=== PATIENT | male | born 1990 | race Caucasian/White ===

== ENCOUNTER 2023-07-22 11:35 | Observation (INO) | payer OTHER, SELFPAY ==
[2023-07-22 11:39] VITALS: BP 165/99; PULSE 85; RESP 16; TEMP 36.9; O2SAT 97
--- NOTE | 2023-07-22 11:45 | DI.CT_ITS ---
Exam(s) CT ABDOMEN PELVIS WO/W EXAM: CT ABDOMEN PELVIS WO/W CLINICAL HISTORY: question renal stone vs SBO- wo study then with. TECHNIQUE: Imaging Protocol: Axial computed tomography images with coronal and sagittal reformatted images were created and reviewed CONTRAST MATERIAL: Intravenous: Omnipaque-350 100cc Oral: None COMPARISON: No exams were available for comparison FINDINGS: VISUALIZED LUNG BASES: No nodules nor pleural effusions evident. ABDOMEN: There is no ascites. LIVER: Liver is quite hypodense implying steatosis and there is mild hepatomegaly. There no discrete focal hepatic lesions evident. No dilated intrahepatic ducts. GALLBLADDER/BILIARY: No obvious gallbladder pathology. CBD is not dilated. PANCREAS: No evidence of pancreatic mass nor dilatation of the pancreatic duct. SPLEEN: Spleen is not enlarged. No obvious intrasplenic lesions. Splenic and portal veins are paten t. ADRENALS: There are no significant adrenal masses. KIDNEYS:Mild left-sided hydronephrosis and hydroureter. There is an obstructing 3 millimeter calculu s in the distal most left ureter at the left ureterovesical junction. No additional calculi evident. No solid renal masses.. ABDOMINAL AORTA: Abdominal aorta is not enlarged. LYMPH NODES:There is no retroperitoneal nor paraaortic adenopathy. ABDOMINAL WALL: No evidence of significant anterior abdominal wall nor inguinal hernia. GI: There is no evidence of bowel obstruction, free air, nor abscess. PELVIS: GI: No evidence of appendicitis.No evidence of sigmoid diverticulitis. LYMPH NODES: There is no intrapelvic nor inguinal adenopathy. REPRODUCTIVE: Prostate size upper normal. Seminal vesicles unremarkable. There is a 7 x 5 mm calcif ication in the upper prostate, slightly left of center. Urinary bladder is moderately distended. URINARY BLADDER: Moderately distended. There is a 3 millimeter calculus at the left ureterovesical j unction. OSSEOUS: No fractures and no significant osseous lesions. IMPRESSION: 1. There is a solitary 3 millimeter calculus in the distal left ureter at the left ureterovesical pedro ction. There is mild dilatation left collecting system above this level. 2. No other calculi seen in the kidneys in ureters. There is a 7 x 5 mm calcification in the upper p rostate slightly left of center. Is difficult to determine if this is in or adjacent to the upper pr ostatic urethra. Urinary bladder is moderately distended. 3. Hepatic steatosis noted. RADIATION DOSE DELIVERED: 2,317.94mGy.cm Total DLP DATA REPOSITORY: All CT scans at this facility are submitted to the National Radiology Data Registry (NRDR) Dose Index Registry (DIR) with the [employer] (A[employer]). RADIATION OPTIMIZATION: All CT scans at this facility use at least one of these dose optimization te chniques: automated exposure control; mA and/or kV adjustment per patient size (includes targeted exa ms where dose is matched to clinical indication); or iterative reconstruction.
--- NOTE | 2023-07-22 11:46 | W.ED.GENAD ---
Discharge Plan Disposition Patient Disposition: Admit to [facility] Condition: Stable Discharge Details Clinical Impression: Obstructive uropathy Primary Care Provider: Unknown,Unknown ED Provider: Chris Allen Home Meds and New Rx's Prescriptions: No Action olanzapine 5 mg tablet 5 mg PO DAILY mirtazapine 45 mg tablet 45 mg PO DAILY buprenorphine HCl 8 mg tablet, sublingual 16 mg sublingual DAILY melatonin 3 mg capsule 3 mg PO HS docusate sodium 100 mg capsule 100 mg PO DAILY senna 8.6 mg capsule 8.6 mg PO QD-BID PRN Fiber-Lax 625 mg tablet 1,250 mg PO DAILY HPI General Date/Time Provider Initiated Documentation: 07/22/23 11:46. HPI Narrative: 32 year-old male presents to ED today by [facility] [employer]- with a chief complaint of L flank pain, problems with urination, sent by [facility] with concern for renal stone with onset for the past two days- patient has also associated constipation that relived with milk of magnesia, but still feels he may have some stool in there still. Quality described as discomfort, feels like he has to urinate but cant, no radiation to fever, does endorse some nausea, denies chest pain, shortness of breath. Severity is described as severe. Palliating factors include attempted to drink lots of water but having significant difficulty urinating. Provoking factors include nothing specific. Patient not anticoagulated. Related Data Home Medications Medication Instructions Recorded Confirmed buprenorphine HCl 8 mg sublingual 16 mg sublingual DAILY 07/22/23 07/22/23 tablet calcium polycarbophil 625 mg 1,250 mg PO DAILY 07/22/23 07/22/23 tablet (Fiber-Lax) docusate sodium 100 mg capsule 100 mg PO DAILY 07/22/23 07/22/23 melatonin 3 mg capsule 3 mg PO HS 07/22/23 07/22/23 mirtazapine 45 mg tablet 45 mg PO DAILY 07/22/23 07/22/23 olanzapine 5 mg tablet 5 mg PO DAILY 07/22/23 07/22/23 sennosides 8.6 mg capsule (senna) 8.6 mg PO QD-BID PRN 07/22/23 07/22/23 Allergies Allergy/AdvReac Type Severity Reaction Status Date / Time No Known Allergies Allergy Verified 07/22/23 11:45 General Stated Complaint: Urinary MARVIN: 3 Review of Systems All systems reviewed & are unremarkable except as noted in HPI and below Exam Narrative Exam Narrative: GENERAL APPEARANCE: Well-nourished, non-toxic, awake and alert, atraumatic, no acute distress. SKIN: Warm, pink, dry, intact, without rashes/lesions/ulcerations. HEAD: Normocephalic, atraumatic, normal hair distribution for gender/age. EYES: Pupils PERRLA, EOMs intact without nystagmus, normal conjunctiva, no exudates on lids/lashes. ENT: Nares patent, no circumoral cyanosis, no facial swelling NECK: Supple, trachea midline, painless cervical ROM. LUNGS/CHEST: Lungs CTA bilaterally- no rhonchi/rales/wheezes diffusely, non-labored respirations, normal A/P diameter, symmetrical expansion, no chest wall deformity HEART (CV/PV): Regular rate and rhythm without murmur, no peripheral edema, no JVD. ABDOMEN: Soft, non-distended, no guarding, + L CVA tenderness to percussion, suprapubic distention MSK: Normal ROM, no swelling/deformity to bilateral UEs or LEs, moving all extremities without weakness, no cyanosis, spine midline without tenderness, normal curvature. NEURO: Mental Status AAOx4 - alert to person, place, time, events No facial droop, no forehead involvement. Motor: No focal weakness - strength 5/5 in bilateral UEs and LEs, proximal and distal, symmetric. Sensory: sensation intact to light touch globally. Gait normal: patient ambulated without ataxia into ED room. PSYCH: euthymic, cooperative, pleasant, appropriate speech Course Vital Signs Vital signs: Vital Signs Temperature 36.9 C 07/22/23 11:39 Pulse 85 07/22/23 11:39 Respiratory Rate 16 07/22/23 11:39 Blood Pressure 165/99 H 07/22/23 11:39 Pulse Oximetry 97 07/22/23 11:39 Temperature 36.9 C 07/22/23 11:39 Pulse 85 07/22/23 11:39 Respiratory Rate 16 07/22/23 11:39 Respiratory Effort Normal 07/22/23 11:43 Blood Pressure 165/99 H 07/22/23 11:39 Pulse Oximetry 97 07/22/23 11:39 Pain Level 9 07/22/23 11:39 Medical Decision Making This dictation utilizes [id number] dictation software and may contain unedited grammatical errors. 32 y/o M presents to ED today with a chief complaint of L flank pain, difficulty urinating, constipation. Denies fever, chest pain, shortness of breath. Patient denies history of renal stones, sent for concern of this from [facility]. Patients' medical history: Diabetes, history of cholecystectomy, history of appendectomy. Family and social history: Incarcerated. Pertinent exam findings / vital signs include L CVA tenderness, suprapubic distention. Differential / pathologies of concern include ureteral stone, obstructive uropathy, infected kidney stone, fecal impaction. Diagnostic studies of: -CBC, BMP, Lipase, Lactate, UA, CT ABD/Pelvis w&wo Contrast. -CBC shows no leukocytosis, no anemia -Lactate elevated 2.3 -BMP no VAHID -UA has hematuria -CT shows distended urinary bladder with possible prostatic urethral stone as cause of for this, and a 3mm obstructing left ureteral stone Interventions of: -IV fluids, ketorolac, ceftriaxone, p.o. tamsulosin, consultation with urology and admission to the hospital for likely cystoscopy and possible procedure tomorrow. ED Course/Assessment/Plan: 32-year-old male presents from long term in custody, having left flank pain and difficulty urinating, he is able to force out some urine but is having to strain very hard to do so. There is a concerning distention of his urinary bladder, this is possibly secondary to a 7 x 5 calcification in the prostate possibly in the prostatic urethra. There is also a 3 mm obstructing left ureteral stone, the patient was able to force a small amount of urine here in the ED. I spoke with Cynthia Dukes PA-C of Urology, agrees that the patient should likely be admitted for evaluation by procedure tomorrow by the urology practice. They would like p.o. tamsulosin, I did prophylax with 1 g of IV ceftriaxone and 50 mg of ketorolac, patient is to be n.p.o. after midnight and Dr. Oakes excepted for admission. Findings not consistent with sepsis, UTI with ureteral stone, complete urinary obstruction. Disposition of Obstructive Uropathy. Patient verbalized understanding of the plan and return to ED criteria and engaged in shared decision making. Medical Records Medical records reviewed: Yes I reviewed the patient's medical records. Imaging Data Radiologic Study: Attestation: I personally reviewed and interpreted this imaging study as follows: Imaging: CT Scan Radiologist's impression: EXAM: CT ABDOMEN PELVIS WO/W CLINICAL HISTORY: question renal stone vs SBO- wo study then with. TECHNIQUE: Imaging Protocol: Axial computed tomography images with coronal and sagittal reformatted images were created and reviewed CONTRAST MATERIAL: Intravenous: Omnipaque-350 100cc Oral: None COMPARISON: No exams were available for comparison FINDINGS: VISUALIZED LUNG BASES: No nodules nor pleural effusions evident. ABDOMEN: There is no ascites. LIVER: Liver is quite hypodense implying steatosis and there is mild hepatomegaly. There no discrete focal hepatic lesions evident. No dilated intrahepatic ducts. GALLBLADDER/BILIARY: No obvious gallbladder pathology. CBD is not dilated. PANCREAS: No evidence of pancreatic mass nor dilatation of the pancreatic duct. SPLEEN: Spleen is not enlarged. No obvious intrasplenic lesions. Splenic and portal veins are patent. ADRENALS: There are no significant adrenal masses. KIDNEYS:Mild left-sided hydronephrosis and hydroureter. There is an obstructing 3 millimeter calculus in the distal most left ureter at the left ureterovesical junction. No additional calculi evident. No solid renal masses.. ABDOMINAL AORTA: Abdominal aorta is not enlarged. LYMPH NODES:There is no retroperitoneal nor paraaortic adenopathy. ABDOMINAL WALL: No evidence of significant anterior abdominal wall nor inguinal hernia. GI: There is no evidence of bowel obstruction, free air, nor abscess. PELVIS: GI: No evidence of appendicitis.No evidence of sigmoid diverticulitis. LYMPH NODES: There is no intrapelvic nor inguinal adenopathy. REPRODUCTIVE: Prostate size upper normal. Seminal vesicles unremarkable. There is a 7 x 5 mm calcification in the upper prostate, slightly left of center. Urinary bladder is moderately distended. URINARY BLADDER: Moderately distended. There is a 3 millimeter calculus at the left ureterovesical junction. OSSEOUS: No fractures and no significant osseous lesions. IMPRESSION: 1. There is a solitary 3 millimeter calculus in the distal left ureter at the left ureterovesical junction. There is mild dilatation left collecting system above this level. 2. No other calculi seen in the kidneys in ureters. There is a 7 x 5 mm calcification in the upper prostate slightly left of center. Is difficult to determine if this is in or adjacent to the upper prostatic urethra. Urinary bladder is moderately distended. 3. Hepatic steatosis noted. Lab Data Lab results reviewed: Yes I reviewed the patient's lab results. Labs: Laboratory Tests Range/Units 07/22/23 07/22/23 12:05 13:58 WBC (4.4-10.8) 10^3/uL 10.65 RBC (4.36-5.78) 10^6/uL 5.11 Hgb (13.5-17.5) g/dL 15.3 Hct (40.0-50.0) % 43.6 MCV (80-95) fL 85 MCH (27.0-33.0) pg 29.9 MCHC (32.0-36.0) % 35.1 RDW (11.8-14.1) % 11.8 Plt Count (130-400) 10^3/uL 258 MPV (8.0-11.0) fL 10.9 Immature Gran % % 0.4 Neutrophils % % 77.8 Lymphocytes % % 16.4 Monocytes % % 4.4 Eosinophils % % 0.3 Basophils % % 0.7 Nucleated RBC % (0.0-0.3) % 0.0 Absolute Neutrophils (1.2-6.7) 10^3/uL 8.29 H Absolute Lymphocytes (1.2-3.4) 10^3/uL 1.75 Absolute Monocytes (0.1-0.8) 10^3/uL 0.47 Absolute Eosinophils (0.0-0.7) 10^3/uL 0.03 Absolute Basophils (0.0-0.2) 10^3/uL 0.07 VBG Lactate (0.6-1.4) mmol/L 2.3 H* Sodium (136-145) mmol/L 138 Potassium (3.5-5.1) mmol/L 3.8 Chloride (98-107) mmol/L 100 Carbon Dioxide (21.0-32.0) mmol/L 28.2 Anion Gap (3-11) mmol/L 9.8 BUN (7-18) mg/dL 16 Creatinine (0.70-1.30) mg/dL 1.2 Est GFR (CKD-EPI 2020) (mL/min/1.73m2) 81.89 Glucose (74-106) mg/dL 140 H Calcium (8.5-10.1) mg/dL 9.6 Lipase (16-77) U/L 23 Procalcitonin ng/mL < 0.1 Urine Color (Yellow) Yellow Urine Clarity (Clear) Clear Urine pH (5-8) 7.0 Ur Specific [place] (1.005-1.025) 1.010 Urine Protein (Neg-Trace) mg/dL Negative Urine Ketones (Negative) mg/dL Negative Urine Blood (Negative) Moderate H Urine Nitrite (Negative) Negative Urine Bilirubin (Negative) Negative Urine Urobilinogen (Up to 0.2) mg/dL 0.2 Ur Leukocyte Esterase (Negative) Negative Urine RBC (0-2) HPF 5-10 H Urine WBC (0-5) HPF Negative Ur Epithelial Cells (Negative) HPF Rare Urine Crystals (Negative) HPF Negative Urine Bacteria (Negative) HPF Negative Urine Casts (Negative) LPF Negative Urine Mucus (Negative) Negative Ur Culture Indicated? No Urine Glucose (Negative) mg/dL Negative Quality:SDOH Health Related Social Needs: No Data to Display PFSH All Active Problems (Updated 07/22/23 @ 15:16 by DULCE Escalante) Obstructive uropathy (Acute) Social History Smoking risk assessment performed?: No Housing: other
[2023-07-22] MEDS: Normal Saline 1,000 ML 1000 ML IV ×2 (12:11→14:02)
[2023-07-22] MEDS: ACETAMINOPHEN 1,000 MG/100 ML BTL 400 MG (12:17)
[2023-07-22 12:27] LABS: Lactate 2.3 mmol/L (0.6-1.4)
[2023-07-22 12:37] LABS: Abs Immature Grans 0.04 10^3/uL (0.0-0.06); Absolute Basophil Count 0.07 10^3/uL (0.0-0.2); Absolute Eosinophil Count 0.03 10^3/uL (0.0-0.7); Absolute Lymphocyte Count 1.75 10^3/uL (1.2-3.4); Absolute Monocyte Count 0.47 10^3/uL (0.1-0.8); Absolute Neutrophil Count 8.29 10^3/uL (1.2-6.7); Basophils % 0.7 %; Eosinophils % 0.3 %; HCT 43.6 % (40.0-50.0); HGB 15.3 g/dL (13.5-17.5); Immature Grans % 0.4 %; Lymphocytes % 16.4 %; MCH 29.9 pg (27.0-33.0); MCHC 35.1 % (32.0-36.0); MCV 85 fL (80-95); MPV 10.9 fL (8.0-11.0); Monocytes % 4.4 %; Neutrophils % 77.8 %; Platelet Count 258 10^3/uL (130-400); RBC 5.11 10^6/uL (4.36-5.78); RDW 11.8 % (11.8-14.1); RDW-SD 36.7 fL; WBC 10.65 10^3/uL (4.4-10.8)
[2023-07-22 13:26] LABS: Anion Gap 9.8 mmol/L (3-11); BUN 16 mg/dL (7-18); CO2 28.2 mmol/L (21.0-32.0); CREATININE 1.2 mg/dL (0.70-1.30); Calcium 9.6 mg/dL (8.5-10.1); Chloride 100 mmol/L (98-107); Estimated GFR 81.89 (mL/min/1.73m2); Glucose 140 mg/dL (74-106); Lipase 23 U/L (16-77); Potassium 3.8 mmol/L (3.5-5.1); Sodium 138 mmol/L (136-145)
[2023-07-22 13:42] LABS: Procalcitonin < 0.1 ng/mL
[2023-07-22] MEDS: Omnipaque 350 MG/ML 100 ML BTL IJ (13:53)
[2023-07-22] MEDS: Normal Saline - Diluent 50 ML VIAL IJ (13:54)
--- NOTE | 2023-07-22 14:05 | NUR.NOTE ---
Nursing Note: Gave update to Medical at [facility], [place]. Will call back with results after tests have resulted.
[2023-07-22 14:06] LABS: Bilirubin Negative (Negative); Blood Moderate (Negative); Clarity Clear (Clear); Glucose Negative (Negative); Ketones Negative (Negative); Leukocyte Esterase Negative (Negative); Nitrite Negative (Negative); Urobilinogen 0.2 mg/dL (Up to 0.2)
[2023-07-22 14:12] LABS: Bacteria Negative HPF (Negative); C & S Indicated? No; Casts Negative LPF (Negative); Crystals Negative HPF (Negative); Epithelial Cells Rare HPF (Negative); Mucus Negative (Negative); WBC Negative HPF (0-5)
[2023-07-22] MEDS: Tamsulosin 0.4 MG CAPCR PO (15:08)
[2023-07-22 15:46] VITALS: BP 165/92; PULSE 80; TEMP 36.7; O2SAT 96
[2023-07-22 17:13] VITALS: BP 136/87; PULSE 89; RESP 16; TEMP 37.1; O2SAT 95
--- NOTE | 2023-07-22 18:06 | W.PM.HP.N ---
Date of service: 07/22/23 Time of Service: 18:06 Assessment and Plan Assessment and plan (1) Nephrolithiasis: Status: Chronic Assessment and plan: Case reviewed with Cynthia Turner from Urology. Plan for NPO at midnight for uretoscopy in the morning. Started on tamsulosin. U/a doesn't look like infection, but I agree with ceftriaxone for now given pending procedure, can stop if no infection behind stone. PRN APAP/ketoralac for pain, ondansatron for nausea if this develops. (2) Obstructive uropathy: Status: Acute Assessment and plan: Hydronephrosis but normal renal funtion as this point. Follow BMP. (3) Opioid use disorder, moderate, in early remission, on maintenance therapy, dependence: Assessment and plan: Stable on buprenorphine/naloxone, continue. Discussed managing pain with alternative medication, has ketoralac prn. (4) Mood disorder: Assessment and plan: normal mood and behavior, continue outpatient mirtazipine and olanzapine, though group home he may choose alternative medication that are less a/w obesity/diabetes (5) DVT prophylaxis: Status: Acute Assessment and plan: has been active, low risk, defer for now History of Present Illness History of Present Illness Chief Complaint: LLQ pain Narrative: 32 yo M with h/o opioid use disorder on buprenorphine/naloxone, currently incarcerated, who presented with 2 days of severe episodic abdominal to testicular pain. Pain first started at 4am on 07/21/23. It started as mild to moderate, but became worse by the hour. He had a bowel movement at 8am, but the pain did not improve. Was seen by a medical provider who recommended milk of magesium, which didn't seem to help. By 10am, the pain was crippling. He was eventually able to fall asleep around noon and the pain was gone when he woke up. The pain returned at 6am this morning, again starting moderate and progressing to severe, and he was brought to the emergency room. Since arriving, the pain has again resolved after just getting fluids and IV acetaminophen. Pain is focal in the left lower quadrant and radiates to his left testicle. Pain is sharp with aching in the left testicle and to the left back. Currently has no pain. He did not get nausea, vomiting, fevers, or hematuria. Review of Systems All systems reviewed & are unremarkable except as noted in HPI and below Constitutional Constitutional: Denies chills, Denies fever(s) and Reports poor appetite (this morning, but good now) Genitourinary Genitourinary: Denies genital lesions, Denies penile discharge and Denies testicular mass Neurologic Neurologic: Denies behavioral changes and Denies confusion Psychiatric Psychiatric: Denies behavioral changes, Denies confusion and Denies mood swings PFSH All Active Problems (Updated 07/22/23 @ 19:29 by Nabor Oakes) DVT prophylaxis (Acute) Nephrolithiasis (Chronic) Obstructive uropathy (Acute) Medical History (Updated 07/22/23 @ 19:29 by Nabor Oakes) Mood disorder Opioid use disorder, moderate, in early remission, on maintenance therapy, dependence Surgical History (Updated 07/22/23 @ 18:40 by Nabor Oakes) Status post ORIF of fracture of ankle Social History (Updated 07/22/23 @ 18:43 by Nabor Oakes) Smoking/Tobacco Use Status: Former Tobacco Use Smoking risk assessment performed?: Yes Alcohol Intake: former Drug use: Current Sobriety Substance use type: former substance user and opiates Housing: other Additional Social history: Year 05/06 incarceration. Moved from [place] to [facility] after adopted age 9. Lived adult life in [place], [place]. Has 2 kids who live with their mom. Meds Allergies and Home Medications Allergies Allergy/AdvReac Type Severity Reaction Status Date / Time No Known Allergies Allergy Verified 07/22/23 11:45 Home Medications Medication Instructions Recorded Confirmed Type buprenorphine HCl 8 mg sublingual 16 mg sublingual DAILY 07/22/23 07/22/23 History tablet calcium polycarbophil 625 mg 1,250 mg PO DAILY 07/22/23 07/22/23 History tablet (Fiber-Lax) docusate sodium 100 mg capsule 100 mg PO DAILY 07/22/23 07/22/23 History melatonin 3 mg capsule 3 mg PO HS 07/22/23 07/22/23 History mirtazapine 45 mg tablet 45 mg PO DAILY 07/22/23 07/22/23 History olanzapine 5 mg tablet 5 mg PO DAILY 07/22/23 07/22/23 History sennosides 8.6 mg capsule (senna) 8.6 mg PO QD-BID PRN 07/22/23 07/22/23 History Exam Narrative Exam Narrative: GEN: Alert and oriented x 4, pleasant and cooperative, gives linear history. No acute distress at rest. HEENT: Head atraumatic. Conjunctiva clear, no icterus. PEERL, EOMI. no rhinorrhea. MMM, OP benign. Neck is supple with no masses or lymphadenopathy LUNGS: CTAB with normal effort CV: RRR with no murmurs, gallops, or rubs. ABD: +BS, soft, NT/ND, no masses EXT: no cyanosis, clubbing, or edema MSK: No joint redness or swelling. No CVA tenderness : Normal male genitals. Testicles not tender, no masses or lesions. no penile discharge NEURO: CN 2-12 grossly intact. Normal movement of 4 extremities. Normal speech and coordination SKIN: No rashes or open wounds. PSYCH: normal mood and affect, nl thought process Results Imaging CT scan - pelvis: report reviewed (1. There is a solitary 3 millimeter calculus in the distal left ureter at the left ureterovesical junction. There is mild dilatation left collecting system above this level. 2. No other calculi seen in the kidneys in ureters. There is a 7 x 5 mm calcification in the upper prostate slightly left ) Labs 07/22/23 12:05 07/22/23 12:05 Labs: Laboratory Results - last 24 hr 07/22/23 07/22/23 12:05 13:58 WBC 10.65 RBC 5.11 Hgb 15.3 Hct 43.6 MCV 85 MCH 29.9 MCHC 35.1 RDW 11.8 Plt Count 258 MPV 10.9 Immature Gran % 0.4 Neutrophils % 77.8 Lymphocytes % 16.4 Monocytes % 4.4 Eosinophils % 0.3 Basophils % 0.7 Nucleated RBC % 0.0 Absolute Neutrophils 8.29 H Absolute Lymphocytes 1.75 Absolute Monocytes 0.47 Absolute Eosinophils 0.03 Absolute Basophils 0.07 VBG Lactate 2.3 H* Sodium 138 Potassium 3.8 Chloride 100 Carbon Dioxide 28.2 Anion Gap 9.8 BUN 16 Creatinine 1.2 Est GFR (CKD-EPI 2020) 81.89 Glucose 140 H Calcium 9.6 Lipase 23 Procalcitonin < 0.1 Urine Color Yellow Urine Clarity Clear Urine pH 7.0 Ur Specific [place] 1.010 Urine Protein Negative Urine Ketones Negative Urine Blood Moderate H Urine Nitrite Negative Urine Bilirubin Negative Urine Urobilinogen 0.2 Ur Leukocyte Esterase Negative Urine RBC 5-10 H Urine WBC Negative Ur Epithelial Cells Rare Urine Crystals Negative Urine Bacteria Negative Urine Casts Negative Urine Mucus Negative Ur Culture Indicated? No Urine Glucose Negative Last Vital Signs Temp 37.1 C 07/22/23 17:13 Pulse 89 07/22/23 17:13 Resp 16 07/22/23 17:13 BP 136/87 07/22/23 17:13 Pulse Ox 95 07/22/23 17:13 Time Spent Time spent with Patient: 55-74 minutes Time was spent: preparing to see the patient(eg.review tests), obtaining and/or reviewing separately otained hiistory, ordering medications,tests, procedures, referring, communicating with other health pet caregiver, indepentently interpreting results and counseling the patient
[2023-07-22] MEDS: cefTRIAXone 1 GM/50 ML BAG IVPB (18:07)
[2023-07-22] MEDS: Melatonin 3 MG TAB PO (20:28)
[2023-07-22 22:50] VITALS: BP 111/69; PULSE 70; RESP 16; TEMP 36.8; O2SAT 95
[2023-07-23] VITALS (10 sets, daily range): BP systolic 101–125; BP diastolic 59–86; PULSE 64–98; RESP 9–20; TEMP 36.2–37.3; O2SAT 93–97; BMI 33.3
[2023-07-23 07:08] LABS: Anion Gap 7.7 mmol/L (3-11); BUN 13 mg/dL (7-18); CO2 28.3 mmol/L (21.0-32.0); CREATININE 0.9 mg/dL (0.70-1.30); Calcium 9.1 mg/dL (8.5-10.1); Chloride 108 mmol/L (98-107); Estimated GFR 115.65 (mL/min/1.73m2); Glucose 99 mg/dL (74-106); Potassium 3.9 mmol/L (3.5-5.1); Sodium 144 mmol/L (136-145)
--- NOTE | 2023-07-23 08:19 | INITIAL_ITS ---
Date of service: 07/23/23 Time of Service: 08:19 Care Management Initial Assmt Initial Assessment Reason for Hospitalization: nephrolithiasis Functional Status/Living Situation Patient Presentation: Landen was sitting up in bed when CM met with him. He had just returned from surgery and informed CM and the nursing staff that he is very hungry. He also stated that he is having a lot of discomfort in his penis but that the pain he had before surgery is gone. He will be given dinner then he will be discharged back to the correctional facility later this afternoon. Town of Residence: [facility]. Has been there for 3 years. prior to that he was living in [place], [place] 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) Instrumental Activities of Daily Living (ADLs): Independent Medications Medication Management: No Issues/Barriers identified Advance Directives Advance Directives: Do you have an Advance Directive: N 07/22/23 13:18 AD On File at [facility]: N 07/22/23 13:18 Date Asked 07/22/23 07/22/23 13:18 AD Date Reviewed COLST On File at [facility] COLST Date Scanned Code Status Resuscitation Status Full Code Portal Pt does not currently have a portal and education provided: No Insurance Coverage/Financial Issues Insurance: [facility] Medicaid ACO Member: No Care Team Visit Care Team Role Provider Type Unknown Unknown Primary Care Provider STAFF PHYSICIAN Hieu Colvin MD Other Providers [facility] STAFF PHYSICIAN DULCE Escalante Emergency Provider PHYSICIANS PROF[employer] PUBLIC ADMINISTRATION Nabor Oakes Admit Provider [facility] STAFF PHYSICIAN Attending Provider Discharge Potential Discharge Needs: Surgical F/U Appt Anticipated Barriers to Discharge: None Identified Patient/Family Education Needs: Review discharge instructions, discuss Ask Me Three Transportation: Other (with corrections staff) Plan: Anticipate Landen will return to the [facility] when medically cleared for discharge. He will follow up with facility providers and plan of care and transp[ort with facility staff. CM will follow and continue to support discharge needs. PFSH All Active Problems DVT prophylaxis (Acute) Nephrolithiasis (Chronic) Obstructive uropathy (Acute) Medical History Mood disorder Opioid use disorder, moderate, in early remission, on maintenance therapy, dependence Surgical History (Updated 07/23/23 @ 14:46 by Hieu Colvin MD) H/O ureteroscopy Status post ORIF of fracture of ankle Social History Smoking/Tobacco Use Status: Former Tobacco Use Smoking risk assessment performed?: Yes Alcohol Intake: former Drug use: Current Sobriety Substance use type: former substance user and opiates Housing: other Additional Social history: Year 05/06 incarceration. Moved from [place] to [facility] after adopted age 9. Lived adult life in [place], [place]. Has 2 kids who live with their mom. SDOH(Care Management) Screening Will the Patient Participate in the Screening?: Yes Do you worry about having a steady place to live?: no In the past 12 months, have you had to go without electric, gas, oil or water in your home?: no Have you or anyone in your house had to go without enough food to eat?: no Has lack of transportation kept you from medical appointments or from doing things needed for daily living?: no Has anyone in your support network made you feel unsafe for any reason?: no Social Determinants of Health Comments(SDOH Details): patient states he has been incarcerated for 3 years Health Related Social Needs Health related social needs details: patient states he has been incarcerated for 3 years
[2023-07-23] MEDS: OLANZapine 5 MG TAB PO (08:51)
[2023-07-23] MEDS: Mirtazapine 15 MG TAB 45 MG PO (08:51)
[2023-07-23] MEDS: Calcium Polycarbophil 625 MG TAB 1250 MG PO (08:51)
[2023-07-23] MEDS: Docusate Sodium 100 MG CAP PO (08:51)
--- NOTE | 2023-07-23 09:04 | UCONE_ITS ---
Date of service: 07/23/23 Time of Service: 09:04 Assessment and Plan Assessment and plan (1) Nephrolithiasis: Status: Chronic Assessment and plan: He has not passed his left ureteral stone. He is not having renal colic symptoms, but he still has irritative symptoms suggesting that the left distal ureteral stone is still present. His CT scan did show prostatic calcification, but I highly doubt that the calcification is within the urethra. Typically, patients with a stone tract within the urethra will have obstructive voiding symptoms. We will plan to go to the operating room later today for cystoscopy, left ureteroscopy and possible holmium laser lithotripsy of his ureteral stone. History of Present Illness History of Present Illness Chief Complaint: Left ureteral stone Narrative: This is a 32-year-old gentleman who presented to our emergency department yesterday with an acute onset of left-sided pain. He noticed his first episode of left upper abdominal and flank pain a few days ago. His symptoms then improved. Yesterday, he had severe left lower quadrant pain and the sensation of needing to void frequently. When he was evaluated in the emergency department, he was found to have a distal left ureteral stone and he was admitted for hydration and analgesia. He tells me that since he was seen in the emergency room, he is only had mild episodes of pain. He still has a sensation of needing to void frequently. He has not passed the stone as far as he can tell. Based on his CT scan, there was some concern about a urethral stone present in the prostatic urethra. He is not having any obstructive symptoms however. Review of Systems Narrative: No fevers or chills No vision change or dysphasia No diabetes or thyroid dysfunction No shortness of breath, cough or hemoptysis No chest pain or palpitations No nausea, vomiting, hepatitis, ulcers, jaundice No seizures, strokes or peripheral neuropathy No bleeding disorders or anemia No gout or arthralgia PFSH All Active Problems (Updated 07/22/23 @ 19:29 by Nabor Oakes) DVT prophylaxis (Acute) Nephrolithiasis (Chronic) Obstructive uropathy (Acute) Medical History (Updated 07/22/23 @ 19:29 by Nabor Oakes) Mood disorder Opioid use disorder, moderate, in early remission, on maintenance therapy, dependence Surgical History (Updated 07/22/23 @ 18:40 by Nabor Oakes) Status post ORIF of fracture of ankle Social History (Updated 07/22/23 @ 18:43 by Nabor Oakes) Smoking/Tobacco Use Status: Former Tobacco Use Smoking risk assessment performed?: Yes Alcohol Intake: former Drug use: Current Sobriety Substance use type: former substance user and opiates Housing: other Additional Social history: Year 05/06 incarceration. Moved from [place] to [facility] after adopted age 9. Lived adult life in [place], [place]. Has 2 kids who live with their mom. Exam Const General: cooperative and no acute distress Neck Neck: supple Resp Effort & Inspection: normal respiratory effort Auscultation: clear to auscultation bilaterally Cardio Rate: regular rate Rhythm: regular rhythm GI Palpation: soft and no masses Neuro General: patient alert, patient awake and patient oriented x3 Results Last Vital Signs Temp 36.7 C 07/23/23 08:24 Pulse 98 H 07/23/23 08:24 Resp 16 07/23/23 08:24 BP 118/86 07/23/23 08:24 Pulse Ox 95 07/23/23 08:24 Labs 07/22/23 12:05 07/23/23 05:46 Labs: Laboratory Results - last 24 hr 07/22/23 07/22/23 07/23/23 12:05 13:58 05:46 WBC 10.65 RBC 5.11 Hgb 15.3 Hct 43.6 MCV 85 MCH 29.9 MCHC 35.1 RDW 11.8 Plt Count 258 MPV 10.9 Immature Gran % 0.4 Neutrophils % 77.8 Lymphocytes % 16.4 Monocytes % 4.4 Eosinophils % 0.3 Basophils % 0.7 Nucleated RBC % 0.0 Absolute Neutrophils 8.29 H Absolute Lymphocytes 1.75 Absolute Monocytes 0.47 Absolute Eosinophils 0.03 Absolute Basophils 0.07 VBG Lactate 2.3 H* Sodium 138 144 Potassium 3.8 3.9 Chloride 100 108 H Carbon Dioxide 28.2 28.3 Anion Gap 9.8 7.7 BUN 16 13 Creatinine 1.2 0.9 Est GFR (CKD-EPI 2020) 81.89 115.65 Glucose 140 H 99 Calcium 9.6 9.1 Lipase 23 Procalcitonin < 0.1 Urine Color Yellow Urine Clarity Clear Urine pH 7.0 Ur Specific [place] 1.010 Urine Protein Negative Urine Ketones Negative Urine Blood Moderate H Urine Nitrite Negative Urine Bilirubin Negative Urine Urobilinogen 0.2 Ur Leukocyte Esterase Negative Urine RBC 5-10 H Urine WBC Negative Ur Epithelial Cells Rare Urine Crystals Negative Urine Bacteria Negative Urine Casts Negative Urine Mucus Negative Ur Culture Indicated? No Urine Glucose Negative
--- NOTE | 2023-07-23 11:30 | CHAPLAIN ---
I had a brief visit with Landen who was in bed. He as [facility]. I explained my role and offered support.
--- NOTE | 2023-07-23 11:33 | PHA.REVIEW2 ---
Pharmacy Admission Review Admission Clinical Review Admission Pharmacy Review: (Updated 07/22/23 @ 19:29 by Nabor Oakes) DVT prophylaxis (Acute) Obstructive uropathy (Acute) No Known Allergies Allergy (Verified 07/22/23 11:45) Resuscitation Status Full Code Height 6 ft 1 in Weight 114.5 kg Pharmacy Admission Review Renal Dosing Renal Dosing: BUN 13 mg/dL (7-18) 07/23/23 05:46 Creatinine 0.9 mg/dL (0.70-1.30) 07/23/23 05:46 Medications needing adjustments: Reviewed (CrCl 154.7 mL/min) List of meds needing interventions: Current medications are okay Anticoagulation Anticoagulation: Hgb 15.3 g/dL (13.5-17.5) 07/22/23 12:05 Hct 43.6 % (40.0-50.0) 07/22/23 12:05 Plt Count 258 10^3/uL (130-400) 07/22/23 12:05 Creatinine 0.9 mg/dL (0.70-1.30) 07/23/23 05:46 DVT Prophylaxis: Reviewed (None at this time - low risk per H+P) Relevant Labs Relevant Labs: Sodium 144 mmol/L (136-145) 07/23/23 05:46 Potassium 3.9 mmol/L (3.5-5.1) 07/23/23 05:46 Chloride 108 mmol/L (98-107) H 07/23/23 05:46 Electrolytes, C-Reactive P, ESR: Reviewed Cardiac Review BP, HR, EF%: Reviewed (BP WNL, HR 98) QTc Review QTc: Reviewed (No EKG on file) IV to PO Switch IV Medications: Reviewed (Ceftriaxone, ketorolac and ondansetron - currently NPO for possible procedure today) Home Meds Home Med List reviewed: Intervened Relevent Home Meds Not ordered & why?: Confirmed buprenorphine dose with correctional facility - 16mg SL daily Current Meds Current Medication Order Review: Reviewed Pharmacy Antibiotic Review Relevant Labs: Relevant Labs 07/22/23 12:05 Procalcitonin < 0.1 WBC 10.65 10^3/uL (4.4-10.8) 07/22/23 12:05 Procalcitonin < 0.1 ng/mL 07/22/23 12:05 Temperature 36.7 C Pharmacy Antibiotic Activity: Reviewed, no change Comments: Patient is on ceftriaxone day 1, to cover pending procedure. Per H+P, will discontinue if no infection behind stone.
--- NOTE | 2023-07-23 13:35 | ANES.PREOP_ITS ---
General Info Date of Service Date Performed: 07/23/23 Height: 6 ft 1 in Weight: 114.5 kg Body Mass Index (BMI): 33.3 Surgical Procedure: Operation Date: 07/23/23 12:25 Proposed Procedure Side Surgeon p Cystoscopy/Possible Laser/Retrograde/Ureteroscopy Left Hieu Colvin MD Meds Allergies and Home Medications Allergies Allergy/AdvReac Type Severity Reaction Status Date / Time No Known Allergies Allergy Verified 07/22/23 11:45 Home Medication Medication Instructions Recorded buprenorphine HCl 8 mg sublingual 16 mg sublingual DAILY 07/22/23 tablet calcium polycarbophil 625 mg 1,250 mg PO DAILY 07/22/23 tablet (Fiber-Lax) docusate sodium 100 mg capsule 100 mg PO DAILY 07/22/23 melatonin 3 mg capsule 3 mg PO HS 07/22/23 mirtazapine 45 mg tablet 45 mg PO DAILY 07/22/23 olanzapine 5 mg tablet 5 mg PO DAILY 07/22/23 sennosides 8.6 mg capsule (senna) 8.6 mg PO QD-BID PRN 07/22/23 Current Visit Medications: Current Medications Generic Name Dose Route Start Last Admin Trade Name Freq PRN Reason Stop Dose Admin Buprenorphine HCl 16 mg 07/23/23 08:30 07/23/23 11:09 Buprenorphine 8 Mg Sublingual Tablet SL 16 mg DAILY LEDY Administration Calcium Polycarbophil 1,250 mg 07/23/23 08:30 07/23/23 08:51 Calcium Polycarbophil 625 Mg Tab PO 1,250 mg DAILY LEDY Administration Docusate Sodium 100 mg 07/23/23 08:30 07/23/23 08:51 Docusate Sodium 100 Mg Cap PO 100 mg DAILY LEDY Administration Ceftriaxone Sodium/Dextrose 1 gm in 50 mls @ 100 mls/hr 07/22/23 16:00 07/22/23 18:40 Rocephin IVPB Infused Q24H LEDY Infusion Sodium Chloride 500 mls @ 0 mls/hr 07/22/23 17:00 Saline 500ml Bag IV DIRECTED PRN As Directed IV Miscellaneous Supplies 1 each 07/22/23 17:00 Iv Access IV DIRECTED LEDY Ketorolac Tromethamine 15 mg 07/22/23 15:26 Ketorolac 15 Mg/Ml Vial IVP 07/27/23 15:25 Q6H PRN PRN Melatonin 3 mg 07/22/23 20:00 07/22/23 20:28 Melatonin 3 Mg Tab PO 3 mg HS LEDY Administration Mirtazapine 45 mg 07/23/23 08:30 07/23/23 08:51 Mirtazapine 15 Mg Tab PO 45 mg DAILY LEDY Administration Olanzapine 5 mg 07/23/23 08:30 07/23/23 08:51 Olanzapine 5 Mg Tab PO 5 mg DAILY LEDY Administration Ondansetron HCl 4 mg 07/22/23 15:26 Ondansetron 4 Mg/2 Ml Vial IVP Q8H PRN PRN Sennosides 1 tab 07/22/23 15:34 Senna Tab PO BID PRN PRN Sodium Chloride 0 ml 07/22/23 17:00 Normal Saline Flush 10 Ml Syr IVP PRN PRN PFSH Active Problems Active Problems: Problem Status Onset Code DVT prophylaxis Z29.9 Nephrolithiasis N20.0 Obstructive uropathy N13.9 Medical History Medical History (Updated 07/22/23 @ 19:29 by Nabor Oakes) Mood disorder Opioid use disorder, moderate, in early remission, on maintenance therapy, dependence Surgical History Surgical History (Updated 07/22/23 @ 18:40 by Nabor Oakes) Status post ORIF of fracture of ankle Tobacco Smoking/Tobacco Use Status: Former Tobacco Use Alcohol Alcohol Intake: former Substance Use Substance use: Current Sobriety Substance use type: former substance user and opiates Vital Signs and Lab Results Vital Signs Most Recent Vital Signs in EMR: Most Recent Vital Signs Temp Pulse Resp BP Pulse Ox 37.3 C 87 16 118/75 94 07/23/23 11:43 07/23/23 11:43 07/23/23 11:43 07/23/23 11:43 07/23/23 11:43 Lab Results 07/22/23 12:05 07/23/23 05:46 Blood Type / Crossmatch: 2 No Data to Display Complete Blood Count: 2 White Blood Count 10.65 10^3/uL (4.4-10.8) 07/22/23 12:05 Red Blood Count 5.11 10^6/uL (4.36-5.78) 07/22/23 12:05 Hemoglobin 15.3 g/dL (13.5-17.5) 07/22/23 12:05 Hematocrit 43.6 % (40.0-50.0) 07/22/23 12:05 Platelet Count 258 10^3/uL (130-400) 07/22/23 12:05 Venous Blood Lactate 2.3 mmol/L (0.6-1.4) H* 07/22/23 12:05 Complete Metabolic Panel: 2 Sodium 144 mmol/L (136-145) 07/23/23 05:46 Potassium 3.9 mmol/L (3.5-5.1) 07/23/23 05:46 Chloride 108 mmol/L (98-107) H 07/23/23 05:46 Carbon Dioxide 28.3 mmol/L (21.0-32.0) 07/23/23 05:46 BUN 13 mg/dL (7-18) 07/23/23 05:46 Creatinine 0.9 mg/dL (0.70-1.30) 07/23/23 05:46 Est GFR (CKD-EPI 2020) 115.65 (mL/min/1.73m2) 07/23/23 05:46 Calcium 9.1 mg/dL (8.5-10.1) 07/23/23 05:46 Glucose 99 mg/dL (74-106) 07/23/23 05:46 Liver Function Panel: 2 No Data to Display Coagulation Panel: 2 No Data to Display Cardiac Panel: 2 No Data to Display Arterial Blood Gas: 2 No Data to Display Venous Blood Gas: 2 No Data to Display Pancreas Panel: 2 Lipase 23 U/L (16-77) 07/22/23 12:05 Thyroid Panel: 2 No Data to Display Infectious Disease: 2 No Data to Display Blood Cultures: 2 No Data to Display Toxicology Panel: 2 No Data to Display Anesthesia Assessment and Plan Anesthesia History Personal History: No History of Anesthesia Complications Family History: No Family History of Anesthesia Complications Exercise Tolerance Exercise Tolerance: Metabolic Equivalents>4 Pertinent Negatives Pertinent Negatives: No Symptoms of GERD Cardiac & Pulmonary Exam Cardiac Exam: Normal S1/S2 Heart Sounds Pulmonary Exam: Clear Bilateral Breath Sounds Implantable Cardiac Device Does patient have a Pacemaker or an ICD?: No Airway Exam Known Difficult Airway: No Mallampati Class: 2 Mouth Opening: Normal (> 3cm) Thyromental Distance: Greater than 3 cm Neck Range of Motion: Full ROM Neck Circumference: Normal Teeth Condition: Normal Dentition ASA Classification ASA Score: ASA 2 Emergency Case?: No NPO Status NPO Status: NPO Clears >2 hours, Solids >8 hours Anesthesia Plan Resuscitation Status: Full Code Anesthesia Technique: General Anesthesia Airway Planned: LMA Monitors Used: Standard Monitors
[2023-07-23] MEDS: Lactated Ringers 1,000 ML 100 ML IV (14:03)
[2023-07-23] MEDS: Omnipaque 300 MG/ML 50 ML BTL (14:23)
[2023-07-23] MEDS: Lidocaine 2% Jelly 11 ML SYR (14:25)
--- NOTE | 2023-07-23 14:39 | ROE_ITS ---
Date of service: 07/23/23 Time of Service: 14:39 Operative Note Operative Note DATE OF PROCEDURE: 07/23/23 PRE-OP DIAGNOSIS: left ureteral stone PROCEDURE: cystoscopy, left retrograde pyelogram, left ureteroscopy with stone extraction SURGEON: Hieu Colvin ANESTHESIA TYPE: Local By Surgeon and General LMA/ETT Refer to Anesthesia Record ESTIMATED BLOOD LOSS: 5 PATHOLOGY: other (stone for chemical analysis) COMPLICATIONS: None Patient was transported to: PACU Patient's condition: stable Implants: none Indications: This is a 32-year-old gentleman who presented to our emergency department with left-sided renal colic. He was found to have a small left distal ureteral stone. He was admitted for hydration and analgesia. He was not able to pass a stone with conservative management so he presents now for stone manipulation Findings: Left distal ureteral stone No urethral stone Procedure Description: The patient was given an additional dose of IV antibiotics and brought to the operating room on 07/23/2023. He was given general anesthesia and placed in the dorsal lithotomy position. His genitalia was prepped and draped. 2% Xylocaine jelly was instilled into the urethra to act as a local anesthetic. A 22 Tanzanian rigid cystoscope was passed through the urethra into the bladder. The urethra and bladder were inspected with the 30 degree lens. The pendulous, bulbar and membranous urethra's appeared normal with no strictures. The prostatic urethra also appeared normal. There were no filling defects within the prostatic urethra or bladder. The bladder neck was entered and the bladder mucosa was inspected. Both ureteral orifices appeared normal with no blood coming from either side. The left orifice was cannulated with a 5 Tanzanian access catheter. Retrograde pyelogram was obtained by injecting Omnipaque through the access catheter under fluoroscopic guidance. There was some narrowing with dilatation of the left distal ureter. A Glidewire was then advanced through the lumen of the access catheter and the wire was advanced further up the left ureter. The access catheter and scope were then removed. A semirigid ureteroscope was then advanced through the urethra into the bladder. The scope was advanced up the left distal ureter and the stone was visualized. The stone was grasped in a Lizabeth stone basket and removed in its entirety. The stone was then sent to pathology for chemical analysis. Because the stone was removed and 1 pass, we elected not to place a ureteral stent. The wire was removed. The patient tolerated the procedure well. He was taken back to the recovery room in stable condition.
--- NOTE | 2023-07-23 14:45 | DI.RAD_ITS ---
Exam(s) XR RETROGRADE IN OR EXAM: XR RETROGRADE IN OR CLINICAL HISTORY: left ureteral stone. TECHNIQUE: 2D digital imaging was performed. COMPARISON: No exams were available for comparison FINDINGS: Possibly provided during urologic procedure. See procedure report for details. Total fluoroscopy time 5 seconds IMPRESSION: Radiation exposure index/cumulative dose: julio Chavarria= 1.29 mGy DATA REPOSITORY: RADIATION DOSE DELIVERED:
--- NOTE | 2023-07-23 14:46 | W.PM.DS.N ---
Date of service: 07/23/23 Time of Service: 14:46 DS: Diagnosis Discharge Diagnosis (1) Nephrolithiasis: Discharge Plan Disposition Patient Disposition: [facility] Condition: Stable Discharge Details Reason For Visit: Obstructing Kidney stone, Hydronephrosis Admit Date/Time: 07/22/23 15:20 Admit Provider: Nabor Oakes Attending Provider: Nabor Oakes Primary Care Provider: Unknown,Unknown Hospital Course Hospital Course: The patient was seen in the emergency department and diagnosed with a left distal ureteral stone based on CT scan. He was initially treated conservatively with analgesia and hydration. He did not pass his stone spontaneously, so he was taken to the operating room on 07/22/2025 for. He underwent left ureteroscopy and his stone was extracted. We elected not to place a ureteral stent at the time of the surgery. Following the procedure, he was given a regular diet. As long as he is able to tolerate oral nutrition and medications, he will be discharged from the hospital. Home Meds and New Rx's Prescriptions: No Action olanzapine 5 mg tablet 5 mg PO DAILY mirtazapine 45 mg tablet 45 mg PO DAILY buprenorphine HCl 8 mg tablet, sublingual 16 mg sublingual DAILY melatonin 3 mg capsule 3 mg PO HS docusate sodium 100 mg capsule 100 mg PO DAILY senna 8.6 mg capsule 8.6 mg PO QD-BID PRN Fiber-Lax 625 mg tablet 1,250 mg PO DAILY Discharge Instructions Instructions: Kidney Stones (DC) Additional Instructions: Follow-up appointment in 6 to 8 weeks. The patient will need a renal ultrasound prior to that visit. Stand Alone Forms: Nursing Discharge Form Referrals: Hieu Colvin MD [ [facility]] - (Call to make an appointment for a follow up in 6-[address] Colvin at , as well as schedule an appointment for a renal ultrasound to be done prior to the follow up appointment. ) Activity:: Activity as Tolerated Equipment/Supplies:: No Equipment Needed Diet:: As Tolerated Discharge Orders Discharge Orders: Discharge Order (Routine); Ordered 07/23/23 Ordered By: Hieu Colvin Discharge Data Discharge Date/Time-TO BE ENTERED AT DEPARTURE: 07/23/23 19:05 DS: Summary Time Spent with Patient providing and/or coordinating discharge services: Less than 30 minutes Status at Discharge Functional status at discharge: independent ambulation Overall status at discharge: patient is progressing back to baseline Mental Status: mental status grossly normal Speech and Movement: speech and movement normal Mood: congruent mood Affect: normal affect Quality:SDOH Health Related Social Needs: Health related social needs details patient states he has been incarcerated for 3 years Health related social needs details: patient states he has been incarcerated for 3 years Exam Narrative Exam Narrative: At the time of discharge, he does not appear septic or toxic His vital signs are documented elsewhere His chest wall motion is normal. He is not short of breath at rest. Cardiac exam shows a regular rate and rhythm His abdomen is soft with no masses He is awake, alert and oriented Psych Mental Status: mental status grossly normal Speech and Movement: speech and movement normal Mood: congruent mood Affect: normal affect DS: Data Vitals/I&O Vitals and I&O: Vital Signs Temperature 37.3 C 07/23/23 11:43 Temperature Source Temporal Artery Scan 07/23/23 11:43 Pulse 87 07/23/23 11:43 Pulse Rhythm Regular 07/23/23 09:46 Respiratory Rate 16 07/23/23 11:43 Respiratory Effort Normal 07/23/23 09:46 Respiratory Depth Normal 07/23/23 09:46 Respiratory Pattern Normal 07/23/23 09:46 Blood Pressure 118/75 07/23/23 11:43 Pulse Oximetry 94 07/23/23 11:43 Oxygen Delivery Method Room Air 07/23/23 11:43 Oxygen Flow Rate 0 07/23/23 11:43 Pain Level 0 07/22/23 22:50 Intake & Output 07/22/23 07/23/23 07/23/23 23:59 11:59 23:59 Intake Total 2059 Output Total 1125 / 1125 1250 / 1250 Balance 935 / 935 -1250 / -1250 Weight 114.5 kg 114.5 kg Intake: IV 2059 Output: Urine 1125 / 1125 1250 / 1250 Other: Urine Color Yellow Yellow Urine Appearance Clear Clear Urine Odor Strong Strong Voiding Methods Urinal Data Completed and Pending Labs on day of discharge: Labs from last 24 hours 07/23/23 05:46 Sodium 144 Potassium 3.9 Chloride 108 H Carbon Dioxide 28.3 Anion Gap 7.7 BUN 13 Creatinine 0.9 Est GFR (CKD-EPI 2021) 115.65 Glucose 99 Calcium 9.1 PFSH Medical History (Updated 07/24/23 @ 00:06 by ELOISE SIMS) Nephrolithiasis Mood disorder Opioid use disorder, moderate, in early remission, on maintenance therapy, dependence Surgical History (Updated 07/23/23 @ 14:46 by Hieu Colvin MD) H/O ureteroscopy Status post ORIF of fracture of ankle Social History Smoking/Tobacco Use Status: Former Tobacco Use Smoking risk assessment performed?: Yes Alcohol Intake: former Drug use: Current Sobriety Substance use type: former substance user and opiates Housing: other Additional Social history: Year 05/06 incarceration. Moved from [place] to [facility] after adopted age 9. Lived adult life in [place], [place]. Has 2 kids who live with their mom. Time Spent with Patient Time Spent with Patient: <45 minutes Time was spent: other
[2023-07-23] MEDS: Phenazopyridine 200 MG TAB PO (15:20)
--- NOTE | 2023-07-23 15:20 | W.ANESPOSTOP ---
Postoperative Evaluation Date, Time and Location Date Performed: 07/23/23 Time Performed: 15:20 Patient Location: PACU Vital Signs Most Recent Imported Vital Signs: Most Recent Vital Signs Temp Pulse Resp BP Pulse Ox 36.3 C L 70 20 113/65 94 07/23/23 15:11 07/23/23 15:11 07/23/23 15:11 07/23/23 15:11 07/23/23 15:11 Pain Score Most Recent Pain Score: Most Recent Pain Score Pain Level 0 07/22/23 22:50 Assessment Mental Status: Awake (Alert & Oriented to Patient Baseline) Airway and Respiratory Function: Patent airway with normal (patient baseline) respiratory exam Cardiovascular Function: Hemodynamically Stable Hydration Status: Adequately Hydrated Nausea & Vomiting: No Nausea or Vomiting Pain: Pain is tolerable per patient Peripheral Nerve Block: Patient did not receive a nerve block
--- NOTE | 2023-07-23 15:57 | W.PM.DS.N ---
Date of service: 07/23/23 Time of Service: 15:57 DS: Diagnosis Discharge Diagnosis (1) Nephrolithiasis: Status: Chronic Discharge Plan Disposition [facility] Condition: Stable Discharge Details Reason For Visit: Obstructing Kidney stone, Hydronephrosis Admit Date/Time: 07/22/23 15:20 Admit Provider: Nabor Oakes Attending Provider: Nabor Oakes Primary Care Provider: Unknown,Unknown Hospital Course Hospital Course: The patient was seen in the emergency department and diagnosed with a left distal ureteral stone based on CT scan. He was initially treated conservatively with analgesia and hydration. He did not pass his stone spontaneously, so he was taken to the operating room on 07/22/2025 for. He underwent left ureteroscopy and his stone was extracted. We elected not to place a ureteral stent at the time of the surgery. Following the procedure, he was given a regular diet. As long as he is able to tolerate oral nutrition and medications, he will be discharged from the hospital. Home Meds and New Rx's Prescriptions: No Action olanzapine 5 mg tablet 5 mg PO DAILY mirtazapine 45 mg tablet 45 mg PO DAILY buprenorphine HCl 8 mg tablet, sublingual 16 mg sublingual DAILY melatonin 3 mg capsule 3 mg PO HS docusate sodium 100 mg capsule 100 mg PO DAILY senna 8.6 mg capsule 8.6 mg PO QD-BID PRN Fiber-Lax 625 mg tablet 1,250 mg PO DAILY Discharge Instructions Instructions: Kidney Stones (DC) Additional Instructions: Follow-up appointment in 6 to 8 weeks. The patient will need a renal ultrasound prior to that visit. Activity:: Activity as Tolerated Equipment/Supplies:: No Equipment Needed Diet:: As Tolerated Discharge Orders Discharge Orders: Discharge Order (Routine); Ordered 07/23/23 Ordered By: Hieu Colvin DS: Summary Time Spent with Patient providing and/or coordinating discharge services: Less than 30 minutes Status at Discharge Functional status at discharge: independent ambulation Overall status at discharge: patient is back to baseline Mental Status: mental status grossly normal Speech and Movement: speech and movement normal Mood: congruent mood Affect: normal affect Quality:SDOH Health Related Social Needs: Health related social needs details patient states he has been incarcerated for 3 years Health related social needs details: patient states he has been incarcerated for 3 years Exam Narrative Exam Narrative: GEN: Alert and oriented, No acute distress at rest. LUNGS: CTAB with normal effort CV: RRR with no murmurs, gallops, or rubs. ABD: +BS, soft, NT/ND, no masses EXT: no cyanosis, clubbing, or edema PSYCH: normal mood and affect, nl thought process Psych Mental Status: mental status grossly normal Speech and Movement: speech and movement normal Mood: congruent mood Affect: normal affect DS: Data Vitals/I&O Vitals and I&O: Vital Signs Temperature 36.2 C L 07/23/23 15:25 Temperature Source Tympanic 07/23/23 15:25 Pulse 67 07/23/23 15:41 Pulse Rhythm Regular 07/23/23 15:42 Respiratory Rate 15 07/23/23 15:25 Respiratory Effort Normal, Non-Labored 07/23/23 15:42 Respiratory Depth Normal 07/23/23 15:42 Respiratory Pattern Normal 07/23/23 15:42 Blood Pressure 122/82 07/23/23 15:41 Pulse Oximetry 95 07/23/23 15:41 Respiratory End-tidal CO2 36 07/23/23 15:11 Oxygen Delivery Method Room Air 07/23/23 15:41 Oxygen Flow Rate 0 07/23/23 15:41 Pain Level 0 07/22/23 22:50 Intake & Output 07/22/23 07/23/23 07/23/23 23:59 11:59 23:59 Intake Total 2059 300 / 300 Output Total 1125 / 1125 1250 / 1250 Balance 935 / 935 -1250 / -950 300 / -950 Weight 114.5 kg 114.5 kg Intake: IV 2059 300 / 300 Output: Urine 1125 / 1125 1250 / 1250 Other: Urine Color Yellow Yellow Urine Appearance Clear Clear Clear Urine Odor Strong Strong Emesis Description None Voiding Methods Urinal Data Completed and Pending Labs on day of discharge: Labs from last 24 hours 07/23/23 05:46 Sodium 144 Potassium 3.9 Chloride 108 H Carbon Dioxide 28.3 Anion Gap 7.7 BUN 13 Creatinine 0.9 Est GFR (CKD-EPI 2020) 115.65 Glucose 99 Calcium 9.1 PFSH All Active Problems DVT prophylaxis (Acute) Nephrolithiasis (Chronic) Obstructive uropathy (Acute) Medical History Mood disorder Opioid use disorder, moderate, in early remission, on maintenance therapy, dependence Surgical History (Updated 07/23/23 @ 14:46 by Hieu Colvin MD) H/O ureteroscopy Status post ORIF of fracture of ankle Social History Smoking/Tobacco Use Status: Former Tobacco Use Smoking risk assessment performed?: Yes Alcohol Intake: former Drug use: Current Sobriety Substance use type: former substance user and opiates Housing: other Additional Social history: Year 05/06 incarceration. Moved from [place] to [facility] after adopted age 9. Lived adult life in [place], [place]. Has 2 kids who live with their mom. Time Spent with Patient Time Spent with Patient: <45 minutes Time was spent: preparing to see the patient(eg.review tests), obtaining and/or reviewing separately otained hiistory, ordering medications,tests, procedures, referring, communicating with other health college and career counselor, indepentently interpreting results, counseling the patient and care coordination
[2023-07-23] MEDS: cefTRIAXone 1 GM/50 ML BAG IVPB (16:21)
[2023-07-30 15:05] LABS: Source: Left Ureter
== END 2023-07-23 19:05 ==
LOC: ER 15:15 → ICU 22:12 → MS 07-23 15:49
PROVIDERS: Urology; Admitting Provider Family Medicine; Emergency Provider Physician Assistant; Visit Provider Family Medicine
PROC: (CPT 52352; principal; 2023-07-23 12:15)
DX: N13.2 Hydronephrosis with renal and ureteral calculous obstruction (principal); F11.20 Opioid dependence, uncomplicated; F39 Unspecified mood [affective] disorder; Z87.891 Personal history of nicotine dependence
CPT/HCPCS: 52352; 00123; 36415; 51798; 80048; 83690; 84145; 96361; 96365; 99285; 74178; 74420; 81003; 81015; 82365; 83605; 85025; 99222; 99238; G0378; J0131; J0690; J0696; J1100; J1885; J2405; J2704; J3490; Q9967